=== PATIENT | female | born 1955 ===

== ENCOUNTER 2018-12-09 01:39 | Inpatient (IN) ==
[2018-12-09] MEDS ORDERED: Naloxone 0.4 MG/ML INJ IVP PRN (05:06)
[2018-12-09] MEDS: Pantoprazole 40 MG in 0.9 % Sodium Chloride Mini Bag 100 ML IVC SCH ×2 (05:06→09:57)
[2018-12-09 07:57] LABS: Hematocrit 39.9 % (35.3-44.9); Hemoglobin 13.8 g/dL (11.5-15.4); Mean Corpuscular HGB Conc 34.6 g/dL (31.6-35.5); Mean Corpuscular Hemoglobin 30.4 pg (28.0-33.3); Mean Corpuscular Volume 87.9 fL (83.0-100.0); Mean Platelet Volume 10.7 fL (9.4-12.4); Platelet Count 291 K/mcL (140-400); Red Blood Count 4.54 M/mcL (3.82-4.97); Red Cell Distribution Width 12.2 % (11.5-14.5); White Blood Count 7.6 K/mcL (4.3-11.1)
[2018-12-09 08:14] LABS: BUN/Creatinine Ratio 15 (6-26); Blood Urea Nitrogen 14 mg/dL (8-23); Calcium 8.8 mg/dL (8.6-10.3); Carbon Dioxide 25 mEq/L (23-29); Chloride 107 mEq/L (98-107); Glucose 108 mg/dL (70-105); Osmolality,Calculated 291 (280-300); Phosphorous 3.9 mg/dL (2.7-4.5); Potassium 4.5 mEq/L (3.5-5.1); Sodium 140 mEq/L (136-145); eGFR For African Americans > 60 (> 60); eGFR For Non-African Americans > 60 (> 60)
[2018-12-09 08:24] LABS: Troponin I 3.01 ng/mL (< 0.04)
[2018-12-09] MEDS ORDERED: Isovue-370 500 ML BOTTLE IVP ONE (09:35)
[2018-12-09] MEDS ORDERED: 0.9 % Sodium Chloride 1,000 ML IVC SCH (09:45)
[2018-12-09] MEDS ORDERED: Heparin 25,000 UNIT/250 ML D5W 25,000 UNIT/250 ML IV.SOLN IVC SCH (10:00)
[2018-12-09] MEDS: Metoprolol XL (24 HR) Succ 25 MG TAB.ER.24H PO SCH (10:54)
[2018-12-09] MEDS: Aspirin Enteric Coated 81 MG Tablet PO SCH (10:54)
[2018-12-09 11:11] LABS: Hematocrit 41.4 % (35.3-44.9); Hemoglobin 14.2 g/dL (11.5-15.4)
[2018-12-09 11:19] LABS: INR 1.1; Prothrombin Time 12.3 Seconds (9.4-12.1)
[2018-12-09] MEDS ORDERED: *HR* Propofol 200 MG/20 ML VIAL IVP ONE (13:13)
[2018-12-09 14:46] LABS: Hematocrit 39.4 % (35.3-44.9); Hemoglobin 13.9 g/dL (11.5-15.4)
[2018-12-09] MEDS ORDERED: SODIUM CHLORIDE/NAHCO3/KCL/PEG 4,000 ML SOLN.RECON PO ONE (17:00)
[2018-12-09 18:18] LABS: Hematocrit 39.5 % (35.3-44.9)
[2018-12-09] MEDS: Pantoprazole 40 MG VIAL IVP SCH (18:36)
[2018-12-10 01:15] LABS: Hematocrit 45.1 % (35.3-44.9)
[2018-12-10 01:30] LABS: Hemoglobin 15.4 g/dL (11.5-15.4)
[2018-12-10 04:33] LABS: Hematocrit 40.2 % (35.3-44.9)
[2018-12-10 04:43] LABS: Hemoglobin 13.1 g/dL (11.5-15.4)
[2018-12-10] MEDS: Pantoprazole 40 MG VIAL IVP SCH ×2 (05:32→16:59)
[2018-12-10] MEDS: Metoprolol XL (24 HR) Succ 25 MG TAB.ER.24H PO SCH (07:42)
[2018-12-10] MEDS: Aspirin Enteric Coated 81 MG Tablet PO SCH (07:42)
[2018-12-10] MEDS ORDERED: Ergocalciferol (VIT D2) 50,000 UNIT (1.25MG) CAP PO SCH (12:00)
[2018-12-10] MEDS ORDERED: Propofol 500 MG/50 ML INFUS..BTL ONE (12:31)
[2018-12-10] MEDS ORDERED: Lidocaine -MPF 2% 2 ML VIAL ONE (12:33)
[2018-12-10] MEDS ORDERED: *HR* Succinylcholine 200 MG/10 ML VIAL IVP ONE (12:36)
[2018-12-10] MEDS ORDERED: Ondansetron 4 MG/2 ML VIAL ONE (13:36)
[2018-12-10] MEDS ORDERED: *HR* Heparin 5,000 UNIT/ML VIAL IVP PRN ×2 (21:18)
[2018-12-10 21:44] LABS: Hematocrit 39.8 % (35.3-44.9); Hemoglobin 13.1 g/dL (11.5-15.4); Mean Corpuscular HGB Conc 32.9 g/dL (31.6-35.5); Mean Corpuscular Hemoglobin 29.9 pg (28.0-33.3); Mean Corpuscular Volume 90.9 fL (83.0-100.0); Mean Platelet Volume 10.1 fL (9.4-12.4); Platelet Count 248 K/mcL (140-400); Red Blood Count 4.38 M/mcL (3.82-4.97); Red Cell Distribution Width 12.1 % (11.5-14.5); White Blood Count 6.7 K/mcL (4.3-11.1)
[2018-12-10 21:57] LABS: INR 1.1; Prothrombin Time 12.9 Seconds (9.4-12.1)
[2018-12-11 02:23] LABS: Basophils # 0.1 K/mcL (0.0-0.2); Basophils % 0.7 %; Eosinophils # 0.3 K/mcL (0.0-0.6); Eosinophils % 3.7 %; Hematocrit 38.7 % (35.3-44.9); Immature Granulocytes % 0.3 % (0-4); Lymphocytes # 2.1 K/mcL (0.6-4.6); Lymphocytes % 31.1 %; Mean Corpuscular HGB Conc 33.6 g/dL (31.6-35.5); Mean Corpuscular Hemoglobin 29.6 pg (28.0-33.3); Mean Corpuscular Volume 88.2 fL (83.0-100.0); Mean Platelet Volume 10.3 fL (9.4-12.4); Monocytes # 0.6 K/mcL (0.0-1.3); Monocytes % 8.2 %; Neutrophils # 3.8 K/mcL (1.6-8.9); Platelet Count 253 K/mcL (140-400); Red Blood Count 4.39 M/mcL (3.82-4.97); Red Cell Distribution Width 12.1 % (11.5-14.5); White Blood Count 6.7 K/mcL (4.3-11.1)
[2018-12-11 02:43] LABS: BUN/Creatinine Ratio 12 (6-26); Blood Urea Nitrogen 11 mg/dL (8-23); Calcium 8.5 mg/dL (8.6-10.3); Carbon Dioxide 22 mEq/L (23-29); Chloride 110 mEq/L (98-107); Glucose 112 mg/dL (70-105); Osmolality,Calculated 290 (280-300); Potassium 3.9 mEq/L (3.5-5.1); Sodium 140 mEq/L (136-145); eGFR For African Americans > 60 (> 60); eGFR For Non-African Americans > 60 (> 60)
[2018-12-11] MEDS: Pantoprazole 40 MG VIAL IVP SCH (05:25)
[2018-12-11] MEDS: Aspirin Enteric Coated 81 MG Tablet PO SCH (08:09)
[2018-12-11] MEDS: Metoprolol XL (24 HR) Succ 25 MG TAB.ER.24H PO SCH (08:09)
[2018-12-11] MEDS ORDERED: Lisinopril 20 MG TABLET PO SCH (09:00)
[2018-12-11 15:35] VITALS: BP 142/83
[2018-12-11] MEDS ORDERED: FLU Vac QV 19-20 (6Month+)/PF 0.5 ML SYRINGE IM ONE (16:30)
== END 2018-12-11 16:54 | disposition home or self-care (01) | DRG 380 ==
LOC: 2ANU → SUATTDRO 02:40
PROVIDERS: ADMIT Family Medicine; ATTEND Pharmacist

== ENCOUNTER 2018-12-13 18:01 | Observation (INO) ==
[2018-12-13] MEDS ORDERED: Ondansetron 4 MG/2 ML VIAL IVP ONE (18:11)
[2018-12-13] MEDS ORDERED: 0.9 % Sodium Chloride 1,000 ML IVC ONE (18:11)
[2018-12-13 18:39] LABS: Prothrombin Time 11.2 Seconds (9.4-12.1)
[2018-12-13 18:42] LABS: Basophils % 0.5 %; Eosinophils # 0.3 K/mcL (0.0-0.6); Hematocrit 43.4 % (35.3-44.9); Hemoglobin 14.2 g/dL (11.5-15.4); Immature Granulocytes % 0.3 % (0-4); Lymphocytes # 2.3 K/mcL (0.6-4.6); Lymphocytes % 30.4 %; Mean Corpuscular HGB Conc 32.7 g/dL (31.6-35.5); Mean Corpuscular Hemoglobin 29.8 pg (28.0-33.3); Mean Corpuscular Volume 91.2 fL (83.0-100.0); Mean Platelet Volume 10.5 fL (9.4-12.4); Monocytes # 0.5 K/mcL (0.0-1.3); Monocytes % 7.1 %; Neutrophils # 4.3 K/mcL (1.6-8.9); Platelet Count 294 K/mcL (140-400); Red Blood Count 4.76 M/mcL (3.82-4.97); Red Cell Distribution Width 12.2 % (11.5-14.5); Segmented Neutrophils % 57.7 %; White Blood Count 7.5 K/mcL (4.3-11.1)
[2018-12-13 19:04] LABS: Troponin I 0.49 ng/mL (< 0.04)
[2018-12-13 19:14] LABS: BUN/Creatinine Ratio 13 (6-26); Blood Urea Nitrogen 13 mg/dL (8-23); Calcium 9.2 mg/dL (8.6-10.3); Carbon Dioxide 26 mEq/L (23-29); Chloride 105 mEq/L (98-107); Glucose 107 mg/dL (70-105); Osmolality,Calculated 299 (280-300); Potassium 4.2 mEq/L (3.5-5.1); Sodium 144 mEq/L (136-145); eGFR For African Americans > 60 (> 60); eGFR For Non-African Americans 56 (> 60)
[2018-12-13] MEDS ORDERED: Ringers Solution, Lactated 1,000 ML IVC SCH (20:45)
[2018-12-13] MEDS: Famotidine 20 MG TABLET PO SCH (22:53)
[2018-12-13] MEDS ORDERED: Nicotine 14 MG PATCH.TD24 TD SCH (23:51)
[2018-12-14 06:44] LABS: Hematocrit 38.9 % (35.3-44.9); Hemoglobin 13.4 g/dL (11.5-15.4)
[2018-12-14] MEDS: Famotidine 20 MG TABLET PO SCH (08:35)
[2018-12-14] MEDS ORDERED: Nicotine 14 MG PATCH.TD24 TD SCH (09:00)
[2018-12-14] MEDS ORDERED: Aspirin Enteric Coated 81 MG Tablet PO SCH (09:00)
[2018-12-14] MEDS ORDERED: Lisinopril 20 MG TABLET PO SCH (09:00)
[2018-12-14] MEDS ORDERED: Metoprolol XL (24 HR) Succ 25 MG TAB.ER.24H PO SCH (09:00)
[2018-12-14] MEDS ORDERED: Aspirin 81 MG TAB.CHEW PO SCH (09:16)
[2018-12-14 11:00] VITALS: BP 124/69
[2018-12-14 11:28] LABS: Hematocrit 39.7 % (35.3-44.9); Hemoglobin 13.2 g/dL (11.5-15.4)
== END 2018-12-14 13:46 | disposition home or self-care (01) ==
LOC: EMEROOARM 18:01 → 2NENU 18:01 → SUATTDRO 20:34 → 2NENU 21:27
PROVIDERS: ADMIT Internal Medicine; ATTEND Family Medicine